=== PATIENT | female | born 1975 | race Caucasian/White ===

== ENCOUNTER → 2018-02-17 | Outpatient (CLI) | payer OTHER ==
[~2018-02-17] MED LIST: NO ROUTINE MEDS; PER PO
--- NOTE | 2018-02-18 12:10 | RADIOLOGY IMAGING REPORT ---
FACILITY: [facility] [place] PATIENT NAME: MALVIN REY : [id number] MR: [id number] V: [id number] EXAM DATE: [id number] ORDERING PHYSICIAN: KAROLINA JANG TECHNOLOGIST: Rocio Ken PROCEDURE:BILATERAL DIGITAL SCREENING MAMMOGRAM WITH CAD ASSISTED INTERPRETATION & 3D TOMOSYNTHESIS COMPARISON:Prior mammograms 11/26/16, 07/26/15, 02/24/14, 02/17/14, 01/15/12. INDICATIONS:SCREENING FINDINGS: Moderately dense heterogeneous fibroglandular tissue is seen throughout the breasts. The parenchymal pattern has remained stable allowing for difference in mammographic technique & patient positioning. There is no evidence of malignant appearing mass, malignant appearing calcifications or other secondary sign of malignancy in either breast. DIAGNOSTIC CATEGORY 1--NEGATIVE. RECOMMENDATIONS: ROUTINE MAMMOGRAM AND CLINICAL EVALUATION. IMPRESSION: BIRADS 1: Negative No significant abnormality is seen. Dictated by: Terra Miranda M.D. on 02/17/2018 at 16:44 Transcribed by: CHRISSIE on 02/18/2018 at 8:08 Approved by: Terra Miranda M.D. on 02/18/2018 at 12:09 [facility]
== END ==
LOC: MAMO 00:54
PROVIDERS: ATTEND Obstetrics & Gynecology
DX: Z12.31 Encounter for screening mammogram for malignant neoplasm of breast (principal)
CPT/HCPCS: 77063; 77067

== ENCOUNTER 2019-02-10 01:37 | Observation (INO) | payer OTHER ==
--- NOTE | 2019-02-09 09:33 | History & Physical ---
History of Present Illness Chief Complaint Heavy and painful menses History of Present Illness 43-year-old presented to clinic with complaints of heavy and painful menses. She has noticed increasingly painful and severe menses the past 8 months. She had an endometrial ablation in [address] Dietz. 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 However, over the past few months she has noticed an increase in pain and flow. The last 2 months were terrible enough that she has been considering a hysterectomy. These menses are not quite as bad as prior to her ablation, but are getting close. She does have intermenstrual spotting or bleeding many cycles. She denies any dyspareunia. She had a bilateral tubal ligation in the period, and never intended to go back to hormonal therapy. She had an endometrial biopsy on 12/30/18 which was benign. She also had an ultrasound which revealed a 9.7 x 6.9 x 5.3 cm anteverted uterus. She had 2 cystic masses within the endometrial lining. No other abnormal findings were discovered. She and her own tracx. History Obstetrical History: ; History of 2 deliveries Past Medical History: PMH: None PSH: x 2 (2002, 2007), BTL (2007), endometrial ablation (2013) Right shoulder surgery 1991, lithotripsy 2001 Allergies: Coded Allergies: No Known Drug Allergies (Unverified , 12/21/18) verified per pt paperwork 12/21/18 Social History: . No tobacco, alcohol or drugs. Family History: FH: breast cancer Mat. GM FH: esophageal cancer FATHER, , Age:69 Med Rec Home Meds Reported Medications Scopolamine (Scopolamine) 1 Mg/3 Day Patch.td.3, [address] patch behind ear night before surgery. 02/03/19 Discontinued Reported Medications [No Routine Meds] No Conflict Check 03/11/14 Review of Systems Constitutional: No Fever Neurological: No Syncope Cardiovascular: No Chest Pain, No Palpitations Respiratory: No Shortness of Breath, No Cough Gastrointestinal: No Nausea, No Vomiting, No Diarrhea, No Abdominal Pain Genitourinary: No Dysuria Musculoskeletal: No Pain Psychiatric: No Depression, No Anxiety Exam General Exam Vital Signs Weight 203 lbs 8 oz / 92.057291 kg Temperature 98.7 F / 37.06 C - Temporal Pulse 79 Blood Pressure 136/86 Sitting, Left Arm Pulse Oximetry 97%, ra General Apperance: Alert/Awake/No Acute Distress Neuro: No Gross deficits Eyes: Normal Extraocular Movement & Vison Cardiovascular: Regular Rate and Rhythm Respiratory: No Respiratory Distress, Clear to Auscultation Abdomen: Soft, Non-Tender, Non-Distended : Normal Musculoskeletal: No Weakness/Pain Extremities: No Cyanosis,Clubbing or Edema Integumentary: Skin Intact without Lesions or Rash Psychological: Alert & Oriented X3, Appropriate Mood & Affect Assessment and Plan Problems: (1) Heavy menses Assessment & Plan: 43-year-old presents with heavy and painful menses. EMB is benign and ultrasound reveals an anteverted uterus with cystic lesions within the endometrial lining, consistent with likely scarring after ablation. After discussing management options, she requests a robotic-assisted hysterectomy with bilateral salpingectomy. We did discuss the option of a hysteroscopic D&C to try to clear out the cystic lesions. She is most interested in definitive management. She is scheduled for 02/10/19. She will undergo a robotic-assisted TLH with bilateral salpingectomy and diagnostic cystoscopy. We have discussed the risks, benefits and alternatives. All of her questions have been addressed. (2) Painful menstruation Problem Qualifiers (1) Heavy menses: Menorrahagia type: with irregular cycle Qualified Codes: N92.1 - Excessive and frequent menstruation with irregular cycle MATY BLANKENSHIP MD Feb 09, 2019 09:31
[~2019-02-10] VITALS: Ht 172.7 cm; Wt 87.5 kg
[2019-02-10] VITALS (13 sets, daily range): BP systolic 108–138; BP diastolic 64–84
[~2019-02-10 01:37] MED LIST changes: +FLU60SYR36 IM; +SCOP1PAT16 TD
[2019-02-10] MEDS ORDERED: PROPOFOL EMUL(*) 10MG/ML 20 ML 20 ML ONE (07:58)
[2019-02-10] MEDS ORDERED: fentaNYL CITR 250 MCG/5 ML AMP ONE (07:58)
[2019-02-10] MEDS ORDERED: DEXAMETHASONE SOD 4 MG/ML VIAL ONE (07:58)
[2019-02-10] MEDS ORDERED: ONDANSETRON 4 MG/2 ML VIAL ONE (07:58)
[2019-02-10] MEDS ORDERED: SUGAMMADEX SOD 200 MG/2 ML SDV ONE (07:58)
[2019-02-10] MEDS ORDERED: ROCURONIUM BROM 10 MG/ML 10 ML ONE (07:58)
[2019-02-10] MEDS ORDERED: LIDOCAINE MPF 1% 5 ML VIAL ONE (07:58)
[2019-02-10] MEDS ORDERED: KETAMINE HCL-NS 50 MG/5 ML SYR ONE (07:59)
[2019-02-10] MEDS ORDERED: HYDROmorphone HCL 2 MG/ML SDV ONE ×2 (07:59→12:30)
[2019-02-10 09:15] LABS: PLATELET COUNT, AUTOMATED 212 K/uL (150-450)
[2019-02-10] MEDS ORDERED: MIDAZOLAM 2 MG/2 ML VIAL IVP PRN (09:15)
[2019-02-10] MEDS ORDERED: PHENAZOPYRIDINE 200 MG TAB PO ONE (09:15)
[2019-02-10] MEDS ORDERED: ceFAZolin(*) 2GM/D5W 50ML 50 ML IVPB ONE (09:15)
[2019-02-10] MEDS ORDERED: FAMOTIDINE 20 MG TAB PO ONE (09:15)
[2019-02-10] MEDS ORDERED: LIDOCAINE/SOD BICARB 8.4% SYR ID ONE (09:15)
[2019-02-10] MEDS ORDERED: NORMOSOL R SOLN(*) 1000 ML BAG 1,000 ML IV PRN (09:15)
[2019-02-10] MEDS ORDERED: BUPIV/EPI 0.25% 1:200,000 50ML INFIL ONE (09:23)
[2019-02-10] MEDS ORDERED: LABETALOL HCL 25 MG/5 ML SYRINGE ONE (09:55)
[2019-02-10] MEDS ORDERED: MAGNESIUM HYDROXIDE* 30ML UDCP PO PRN (11:55)
[2019-02-10] MEDS ORDERED: ACETAMINOPHEN 325 MG TAB PO PRN (11:55)
[2019-02-10] MEDS ORDERED: IBUPROFEN 800 MG TAB PO PRN (11:55)
[2019-02-10] MEDS ORDERED: METOCLOPRAMIDE 10 MG/2 ML SDV IV PRN (11:55)
[2019-02-10] MEDS ORDERED: DLR(*) 1000 ML BAG 1,000 ML IV PRN (11:55)
[2019-02-10] MEDS ORDERED: ONDANSETRON 4 MG/2 ML VIAL IV PRN (11:55)
[2019-02-10] MEDS ORDERED: SIMETHICONE 80 MG CHEW CHEW PRN (11:55)
--- NOTE | 2019-02-10 11:55 | Post Operative Note ---
Operative Note - DATA MINING ANALYST Operative Day Date: Feb 10, 2019 Time: 11:55 Physicians Surgeon: Jackelin Sugar Chipper Machine Operator: Aaliyah Anesthesia: GETA, Amado Diagnosis Pre-Op Diagnosis: Painful and heavy menses Post-Op Diagnosis: Same Procedure Procedure(s): RATLH/BS/dx cysto Specimen Removed:(Maybe N/A): Uterus, cervix, tubes Fluids Fluids: IVF: 1500cc UOP: 300cc Estimated Blood Loss: 50cc MATY BLANKENSHIP MD Feb 10, 2019 11:55
[2019-02-10] MEDS ORDERED: fentaNYL CITR 100 MCG/2 ML AMP ONE (12:12)
--- NOTE | 2019-02-10 14:19 | OPERATIVE REPORT 1 ---
EVENT DATE: February 10, 2019 SURGEON: Josie Benítez MD ANESTHESIOLOGIST: Abdirashid Amado MD ANESTHESIA: General endotracheal tube. MINER OPERATOR: Silvino Fischer DO PREOPERATIVE DIAGNOSIS Painful and heavy menses. POSTOPERATIVE DIAGNOSIS Painful and heavy menses. PROCEDURES PERFORMED 1. Robotic-assisted total laparoscopic hysterectomy with bilateral salpingectomy. 2. Diagnostic cystoscopy. SPECIMENS REMOVED Uterus, cervix, bilateral fallopian tubes. IV FLUIDS 1500 cc. URINE OUTPUT 300 cc. ESTIMATED BLOOD LOSS 50 cc. INDICATIONS FOR PROCEDURE This patient is a 43-year old, 2, para 2 who presented to clinic with complaints of heavy and painful menses. She has noticed increasing painful and severe menses over the past eight months. She has already had an endometrial ablation in [address] Dietz. She is not interested in returning to hormonal therapy as she has also had a bilateral tubal ligation. She, therefore, requested definitive management with a hysterectomy. She was consented for the above-said procedure. Please see history and physical for full details. DESCRIPTION OF PROCEDURE Patient was properly identified and taken to the operating room. She was placed under general endotracheal tube anesthesia, placed in the dorsal lithotomy position and prepped and draped in the usual fashion for laparoscopic and vaginal procedure. The patient received Ancef preoperatively for prophylactic antibiotics. Her SCDs were on and functioning. A bimanual exam was performed, which revealed an 8 cm anteverted uterus. A speculum was placed to visualize the cervix, which was nulliparous and without lesion. The anterior lip was grasped with an Allis clamp. The cervix was serially dilated to 5 mg using Lisa dilators. The medium V-Care uterine manipulator was then requested and assembled. A suture was placed through the anterior lip of the cervix to the os and then from the os through the posterior lip of the cervix. This suture was then passed through the V-Care, which was placed into the uterine fundus. The V-Care tip was insufflated and remained in place. The colpotomy was then advanced to be flush against the cervix and vaginal mucosa. This was then tired down with an 0 Vicryl suture. The pneumo- occluder was advanced into the vagina and secured. A Bosch catheter was then placed to drain the bladder. The patient was then placed in supine position and attention was turned to the laparoscopic portion of the procedure. The infraumbilical region was infiltrated with 0.25% Marcaine with epinephrine. A Veress needle was tested and proven to be functioning. An 8 mm incision was made infraumbilically. A Veress needle was passed through this incision to the abdominal cavity but was unable to achieve the appropriate double-click test. Therefore, the 8 mm trocar was introduced into the abdomen under direct visualization. Once the intra-abdominal cavity was visualized, a pneumoperitoneum was achieved. Once entry into the abdominal cavity was confirmed, the remaining locations of the trocars were planned with two on the right and two on the left. The two 8 mm trocars were inserted under direct visualization on the patient's right side. An 11 mm incision was made with left lateral incision and an 8 mm incision in the more medial on the patient's left side. These two ports were introduced under direct visualization. At this time, the patient was placed into Trendelenburg position. The liver and gallbladder appeared within normal limits. There were no intra-abdominal adhesions at this time. The [employer] robotic system was then prepared for docking. It was brought in and aligned. The endoscope port was docked. The endoscope was then introduced and targeting was performed on the uterus. The remaining arms were then docked without difficulty. The fenestrated bipolar graspers, ProGrasp and monopolar scissors were then advanced under direct visualization into the pelvis and energy was connected. At this time, I was able to break sterile and sit at the console to initiate the hysterectomy. Examination of the pelvis revealed some significant anterior adhesions at the vesicouterine peritoneum. In addition, the pelvic side wallace were somewhat adhesed to the ovaries. The patient's left fallopian tube was elevated and the mesosalpinx was able to be cauterized and transected. The fallopian tube was then completely and the tube was removed from the abdominal cavity through the circulation assistant port. The same procedure was performed on the right side where the tube was elevated and mesosalpinx was cauterized. The right fallopian tube was then completely and delivered through the circulation assistant port. Attention was turned to the right aspect of the uterus, where the right round ligament was cauterized and transected followed by the right utero-ovarian ligament. The broad ligament was then able to be opened and the anterior leaflet was brought down to the anterior part of the uterus. There was extremely thick scar tissue particularly on the patient's left vesicouterine peritoneum. Once the appropriate plane was identified on the right side, this was carried across to the left in order to allow the bladder flap to be fully dissected. Once this was achieved, the colpotomy ring was able to be well identified underneath the vaginal tissue. Attention was then turned to the patient's left side, where the left round ligament was cauterized and transected followed by the utero-ovarian ligament. The broad ligament was then opened and the anterior leaflet was brought down to the level of the vesicouterine peritoneum that had already been dissected. The posterior peritoneum was then further deflected followed by cauterization of the left uterine vessels. The right uterine vessels were also cauterized and transected. At this time, the colpotomy was able to be initiated anteriorly. This was carried in a circumferential fashion until the entire colpotomy was completed. The uterus was then delivered into the vagina and left in place to maintain pneumoperitoneum. The cuff was copiously irrigated and did have a small amount of bleeding posteriorly, which was then made hemostatic. An 0-Vicryl suture was then utilized in a [id number] manner to reapproximate the tissue on the left corner. A V-Loc suture was then initiated on the right side to reapproximate the right corner following to the left with an unlocked suture. Once this was completely closed, the suture was followed backwards with one additional suture towards the right. Once this was completed, copious irrigation was again performed, revealing adequate hemostasis. Using the Jose D-Moon device, the fascia of the circulation assistant port was then closed using an 0 Vicryl with robotic assistance. The Bosch catheter was then removed from the bladder. A cystoscope was assembled and introduced through the urethra and into the bladder under direct visualization. The entire bladder was evaluated and normal to be normal without any lesions or sutures. Bilateral ureteral jets were noted with Pyridium- stained urine. The cystoscope was then removed and the Bosch catheter was replaced. All of the robotic arms were undocked and the instruments were removed. The pneumoperitoneum was relieved and the 11 mm fascia was tied down. All five skin incision were reapproximated using a 4-0 Monocryl and closed with Dermabond. The patient tolerated this procedure well and recovered in the Post-Anesthesia Care Unit. All sponge, needle and instrument counts were correct at the end of the procedure. NADIA
--- NOTE | 2019-02-10 16:01 | OB/GYN Progress Note ---
OB Subjective Progress Notes Subjective Pt is doing well. Pain is well controlled with percocet. Tolerating some po. Not yet ambulating. Bosch still in. No CP/SOB. OB Objective Physical Exam Vital Signs Date Time Temp Pulse Resp B/P (MAP) Pulse Ox O2 Delivery O2 Flow Rate FiO2 02/10/19 15:15 83 108/66 (80) 95 02/10/19 15:00 15 02/10/19 13:30 98.3 Room Air General Appearance: Alert/Awake/No Acute Distress Neurological: No Gross deficits Eyes: Normal Extraocular Movement & Vison Cardiovascular: Normal Rhythm & Peripheral Pulses, Regular Rate and Rhythm Respiratory: No Respiratory Distress, Clear to Auscultation Abdomen: Soft, Non-Tender, Non-Distended Incision: Clean, Dry, Intact Extremities: No Cyanosis,Clubbing or Edema Integumentary: Skin Intact without Lesions or Rash Psychological: Alert & Oriented X3, Appropriate Mood & Affect Result Diagram: 02/10/19 0900 Assessment and Plan Problems: (1) History of robot-assisted laparoscopic hysterectomy Assessment & Plan: POD#0 s/p RATLH/BS/dx cysto. Doing well. Routine orders. MATY BLANKENSHIP MD Feb 10, 2019 16:01
[2019-02-10] MEDS ORDERED: OXYC-865 PO (16:12)
[2019-02-10] MEDS ORDERED: IBUP800T37 PO (16:12)
[2019-02-10] MEDS ORDERED: KETOROLAC 30 MG/ML VIAL IVP SCH (18:00)
[2019-02-10] MEDS: DOCUSATE CALCIUM 240 MG CAP PO SCH (21:04)
[2019-02-10] MEDS: FAMOTIDINE 20 MG TAB PO SCH (21:04)
[2019-02-11] MEDS: IBUPROFEN 800 MG TAB PO PRN ×2 (00:10→07:57)
[2019-02-11 02:55] VITALS: BP 108/64
[2019-02-11 07:06] LABS: PLATELET COUNT, AUTOMATED 208 K/uL (150-450)
[2019-02-11] MEDS: DOCUSATE CALCIUM 240 MG CAP PO SCH (07:57)
[2019-02-11] MEDS: FAMOTIDINE 20 MG TAB PO SCH (07:57)
--- NOTE | 2019-02-11 08:05 | OB/GYN Progress Note ---
OB Subjective Progress Notes Subjective Doing well. Pain controlled with oral medications. Tolerating regular diet. Ambulating. Voiding. No vaginal bleeding. No chest pain, shortness of breath or dizziness. OB Objective Physical Exam Vital Signs Date Time Temp Pulse Resp B/P (MAP) Pulse Ox O2 Delivery O2 Flow Rate FiO2 02/11/19 04:30 93 Room Air 02/11/19 02:55 98.4 88 15 108/64 (79) 0.5 Intake and Output 02/11/19 07:00 Intake Total 2800 ml Output Total 1600 ml Balance 1200 ml Intake Oral 950 ml IV Total 1850 ml Output Urine Total 1600 ml # Voids 2 General Appearance: Alert/Awake/No Acute Distress Neurological: No Gross deficits Eyes: Normal Extraocular Movement & Vison Cardiovascular: Normal Rhythm & Peripheral Pulses, Regular Rate and Rhythm Respiratory: No Respiratory Distress, Clear to Auscultation Abdomen: Soft, Non-Tender, Non-Distended Incision: Clean, Dry, Intact Extremities: No Cyanosis,Clubbing or Edema Integumentary: Skin Intact without Lesions or Rash Psychological: Alert & Oriented X3, Appropriate Mood & Affect Result Diagram: 02/11/19 0639 Assessment and Plan Problems: (1) History of robot-assisted laparoscopic hysterectomy Assessment & Plan: POD#1 s/p RATLH/BS/dx cysto. Meeting milestones. Desires discharge to home today. Discussed routine postoperative expectations. Ques tions answered. Follow up in clinic in 1-2wks for postop check. MATY BLANKENSHIP MD Feb 11, 2019 08:05
--- NOTE | 2019-02-11 08:07 | OB/GYN Discharge Summary ---
Discharge Summary Reason for Hosp/Final Diag: (1) History of robot-assisted laparoscopic hysterectomy Hospital Course & Plan: POD#1 s/p RATLH/BS/dx cysto. Meeting milestones. Desires discharge to home today. Discussed routine postoperative expectations. Questions answered. Follow up in clinic in 1-2wks for postop check. Lates Vital Signs Vital Signs Date Time Temp Pulse Resp B/P (MAP) Pulse Ox O2 Delivery O2 Flow Rate FiO2 02/11/19 04:30 93 Room Air 02/11/19 02:55 98.4 88 15 108/64 (79) 0.5 Weight (Pounds): 193 Result Diagram: 02/11/19 0639 Condition: Improved Discharge: Home, Self Senior Living Meds Active Scripts Oxycodone Hcl/Acetaminophen (PERCOCET 5-325 MG TABLET) 1 Each Tablet, 1 TAB PO Q4-6H PRN for pain, #20 TAB 0 Refills Prov:MATY BLANKENSHIP MD 02/10/19 Reported Medications Scopolamine (Scopolamine) 1 Mg/3 Day Patch.td.3, [address] patch behind ear night before surgery. 02/03/19 Follow up Referrals: [facility] [facility] HELPER - In Two Weeks @ [facility] [place] with MATY BLANKENSHIP MD Discharge Diet: As Tolerates Discharge Activity: No Heavy Lifting > 10lb, Pelvic Rest Special Instructions: Take a stool softener (docusate) twice daily. Start with one capful of milk of magnesia daily and then titrate off as needed. MATY BLANKENSHIP MD Feb 11, 2019 08:07
[2019-02-11 08:15] VITALS: BP 119/63
[2019-02-11] MEDS ORDERED: INFLUENZA VIRUS VAC 0.5ML SYR IM ONLY ONE (09:00)
== END 2019-02-11 08:05 | disposition home or self-care (01) ==
LOC: OR 01:37 → OB 13:30
PROVIDERS: ADMIT Obstetrics & Gynecology; ATTEND Obstetrics & Gynecology
DX: N94.6 Dysmenorrhea, unspecified (principal); N92.0 Excessive and frequent menstruation with regular cycle
CPT/HCPCS: 36415; 58571; 84703; 85025; 88307; G0378; J1100; J1170; J1885; J2001; J2250; J2405; J2704; J3010; J3490; S2900; J0690